=== PATIENT | male | born 1960 | race Caucasian/White ===

== ENCOUNTER 2021-04-16 18:00 | Outpatient (RCR) | payer BC, SELFPAY ==
--- NOTE | 2021-02-19 19:02 | HP.PTEVAL ---
Patient's Visit Information PAM GONZALEZ is a 60 year old M referred to Physical Therapy by WENCESLAO Grossman with a diagnosis of R shoulder pain. Date of Evaluation: 02/19/21 Physical Therapist: Charles Velez, PT, ATC - Visit Plan Frequency: 2-3x /Week Duration: 4 Weeks Plan: Issue and instruct pt on HEP of rotator cuff stretches, and scap stab ex's - Subjective Pt reports his R shoulder became really sore approximately 5-6 weeks ago. Pt reports his pain progressively worsened until he was barely able to move his R UE. Pt reports after taking a prednisone dose pack, his pain has really decreased and he is much better today. Pt reports occasional sleep difficulty if he sleeps on his R shoulder. 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 Pt denies tingling and numbness at this time. Pt is R hand dominant. Pt reports he is here today in order to get a HEP that he would be able to do I at home. Pt reports his pain is always worse in the morning. Pt reports this makes it hard for him to wash his hair. 0/10 pain at rest, 4/10 pain at worst. - Pain R shoulder pain Pain Intensity (Out of 10): 0 Pain Intensity Range: 4 - Objective Neuro: B UE sensation is WNL to light touch. B bicepital reflex= 2/3. Palpation: R shoulder is sore throughout the distribution of the LHB tension. No obvious deformity at thisd time. ROM: B shoulders are WFL at this time. MMT: R shoulder ER 3+/5 and painful. All other B UE MMT 5/5 throughout. Special tests:Pos HK, empty can sign - Balance/Special Test Scores Quick DASH Score: 22.7250 - Goals Goal 1:: I with HEP Goal Time Frame: 2 Weeks - Rehabilitation Potential Physical Therapy Diagnosis: R shoulder pain, weakness, and limited ROM secondary to impingement syndrome of the R shoulder Rehabilitation Potential: Good - Anticipated Interventions Patient/Client Instruction: Educate patient on: Condition, Plan of Care For the Purpose of:: To improve self management Therapeutic Exercise to Include: Strength training, Endurance training, Active ROM, Scapular Strength/Stabilization For the Purpose of:: To decrease pain, To increase ROM, To improve muscle performance and motor function Cryotherapy (ice pack, ice massage): Yes For the Purpose of:: To decrease pain Thank you for the opportunity to evaluate your patient. For Medicare and Medicare HMO plans, please review the plan of care and approve it. It will need to be FAXED BACK to us at [phone] for Medicare purposes. For Medicare only, by signing this I certify the plan of care. Please let me know if there are questions or concerns regarding this plan of care. Physician Signature: Date:
--- NOTE | 2021-04-16 18:28 | HP.PTDCSUM ---
It has been my pleasure to treat PAM GONZALEZ referred by WENCESLAO Grossman, with the diagnosis of R shoulder pain for a total of 6 visit(s). Discharge Date: Please see the following information for a summary of their discharge status. Subjective: Pt reports minor pain this date R shoulder pain Pain Intensity (Out of 10): 1 Objective/Function: R shoulder pain 0-1/10. R shoulder ROM: flex= 145, abd= 135, ER= 55. R shoulder MMT: 5/5 throughout with exception ER= 4/5. Pt is I with HEP. Rx goals achieved Goal 1:: I with HEP Goal Progress: Goal Met Plan: Discharge If there are questions or concerns regarding this patient's physical therapy, please feel free to call me at [phone]. Thank you for the referral of this patient. Sincerely, Charles Velez, PT, ATC Balance/Gait/Functional tests - Balance/Special Test Scores Quick DASH Score: 6.8175
== END 2021-04-16 19:00 | disposition home or self-care (01) ==
LOC: PT 18:00
PROVIDERS: PCP Family Medicine; Referring Provider Physician Assistant Surgical; Visit Provider Physician Assistant Surgical
DX: M77.8 Other enthesopathies, not elsewhere classified (principal); S46.911A Strain of unspecified muscle, fascia and tendon at shoulder and upper arm level, right arm, initial encounter
CPT/HCPCS: 97110; 97161; 97164

== ENCOUNTER 2021-08-07 15:54 | Emergency (ER) | payer BC, SELFPAY ==
[2021-08-07 15:55] VITALS: BP 195/91; PULSE 88; RESP 18; TEMP 36.3; O2SAT 98; BMI 28.8
--- NOTE | 2021-08-07 16:09 | EX.ED.DYSGE1 ---
HPI <WENCESLAO Abbott - Last Filed: 08/07/21 17:11> History of Present Illness Chief Complaint: Complaint Narrative Narrative: 60-year-old male with PMH of BPH presents with decreased urine flow over the last 3 days. He has the urge to go but only a small amount dribbles out. He has had this intermittently in the past but it never required intervention. He saw Dr. Cobb who ruled out prostate cancer and he has been taking [id number] BPH medications. He has suprapubic pain but no flank pain. No fever, chill, nausea, or vomiting. PFSH <WENCESLAO Abbott - Last Filed: 08/07/21 17:11> [facility] Medical History (Updated 08/07/21 @ 17:09 by WENCESLAO Abbott) Shoulder pain Home Medications NK 01/30/21 [History Last Taken Unknown] Allergy/AdvReac Type Severity Reaction Status Date / Time No Known Allergies Allergy Verified 08/07/21 15:56 Surgical History History of vasectomy Social History Smoking Status: Never smoker ROS <WENCESLAO Abbott - Last Filed: 08/07/21 17:11> ROS ED ROS Narrative Constitutional: Negative for fever, chills, malaise. Eyes: Negative for visual change. ENT: Negative for sore throat, ear pain, rhinorrhea. CVS: Negative for palpitations, chest pain, syncope. Respiratory: Negative for shortness of breath, cough, orthopnea. GI: Positive for abdominal pain. Negative for nausea, vomiting, diarrhea, constipation, melena, hematochezia. : Positive for urgency. Negative for dysuria, hematuria. Neuro: Negative for headache, motor/sensory dysfunction. Skin: Negative for rash, abscess, or wound. Musc: Negative for joint pain, swelling, trauma. Heme: Negative for easy bruising, bleeding, lymphadenopathy. EXAM <WENCESLAO Abbott - Last Filed: 08/07/21 17:11> Physical Exam Narrative Exam Narrative: CONST: Patient sitting in no acute distress. EYES: Normal inspection. NECK: Normal inspection. RESP: No respiratory distress, CTAB. CVS: Regular rate and rhythm, no murmur, no gallop. ABD: Soft with suprapubic distention and tenderness, no guarding or rebound. Back: Normal inspection, no CVA tenderness. SKIN: Color normal, no rash, warm, dry, intact. EXTREMITIES: Normal appearance, no pedal edema. NEURO: Oriented x4. PSYCH: Normal affect. Const Vital Signs: 08/07/21 15:55 Temperature 97.4 F L Temperature Source Temporal Pulse Rate 88 Respiratory Rate 18 Blood Pressure 195/91 H Blood Pressure Mean 125 Pulse Ox 98 Oxygen Delivery Method Room Air <Dr. Carlos Perrin DO - Last Filed: 08/07/21 17:18> Physical Exam Const Vital Signs: 08/07/21 15:55 Temperature 97.4 F L Temperature Source Temporal Pulse Rate 88 Respiratory Rate 18 Blood Pressure 195/91 H Blood Pressure Mean 125 Pulse Ox 98 Oxygen Delivery Method Room Air MDM <Leah Albert PA - Last Filed: 08/07/21 17:11> [facility] Narrative Medical decision making narrative: Patient presents with suprapubic pain and urinary retention. He has known history of BPH. He appears well nontoxic. He was hypertensive, otherwise normal vital signs. On examination he is suprapubic distention and tenderness. No CVA tenderness. Bladder scan showed over 900 cc present so Humphreys was placed and he had around 1000 cc output. He is feeling significantly improved with now soft, nontender nondistended abdomen. UA is negative for infection. Patient is established with Dr. García and will call him on Tuesday for a follow-up for urinary retention. We discussed Humphreys catheter care and he was discharged in stable condition. 1. Urinary retention, indwelling Humphreys placed Lab Data Labs: Laboratory Results - last 24 hr 08/07/21 16:30 Urine Color Yellow Urine Clarity Clear Urine pH 6.0 Ur Specific [place] 1.020 Urine Protein Negative Urine Glucose (UA) Normal Urine Ketones Negative Urine Occult Blood 25 H Urine Nitrite Negative Urine Bilirubin Negative Urine Urobilinogen Normal Ur Leukocyte Esterase Negative Urine RBC 0-5 SEEN Urine WBC 0 SEEN Ur Squamous Epith Cells 0 SEEN Urine Bacteria 0 SEEN Urine Mucus 0 SEEN <Dr. Carlos Perrin DO - Last Filed: 08/07/21 17:18> [facility] Narrative Medical decision making narrative: I performed a history and physical examination of the patient and discussed management plan with the physician construction management assistant. I reviewed the physician construction management assistant's note and agree with the documented findings and plan of care. Patient notes a history of prostatic enlargement. He notes that he has continued to have a decrease in his stream and frequent urination. Now unable to urinate. Humphreys catheter was placed with over 1000 cc out. He will be discharged and follow-up with urology. Carlos Perrin DO, MS Lab Data Attestation: I reviewed the patient's lab results. Labs: Laboratory Results - last 24 hr 08/07/21 16:30 Urine Color Yellow Urine Clarity Clear Urine pH 6.0 Ur Specific [place] 1.020 Urine Protein Negative Urine Glucose (UA) Normal Urine Ketones Negative Urine Occult Blood 25 H Urine Nitrite Negative Urine Bilirubin Negative Urine Urobilinogen Normal Ur Leukocyte Esterase Negative Urine RBC 0-5 SEEN Urine WBC 0 SEEN Ur Squamous Epith Cells 0 SEEN Urine Bacteria 0 SEEN Urine Mucus 0 SEEN Discharge Plan Triage Chief Complaint: Complaint ED Provider: Leah Albert Dx/Rx/DC Orders Clinical Impression: Acute urinary retention Instructions: ED Urinary Retention, Male Prescriptions: No Action NK RF: 0 Primary Care Provider: Sebastián Otero Referrals: Sebastián Otero MD [Primary Care Provider] - Jake García MD [STAFF PHYSICIAN] - Activity Restrictions/Additional Instructions: You were seen for urinary retention. The Humphreys catheter stays in and drained your urine. Follow-up with urology for evaluation and removal. If you have any issues or it not draining come back to the ER. Disposition Disposition: Home, Self Care
[2021-08-07 16:38] LABS: Bacteria 0 SEEN /hpf (None Seen); Mucous, Urine 0 SEEN /hpf (<or=2+); Squamous Epithelial Cells - UA 0 SEEN /hpf (0-5); White Blood Cells 0 SEEN /hpf (0-5)
[2021-08-07 16:45] LABS: Color, Urine Yellow (Yellow); Glucose, Dipstick Normal (Normal); Ketone-Dipstick Negative (Negative); Leukocyte Esterase-Dipstick Negative /ul (Negative); Nitrite-Dipstick Negative (Negative); Occult Blood-Urine 25 /ul (Negative); Protein-Dipstick Negative (Negative); Urine Bilirubin Dipstick Negative (Negative); Urine Clarity Clear (Clear); Urine Urobilinogen Normal (Normal)
[2021-08-07] MEDS: Lidocaine Jelly 2% 20 ML Syringe (URO-JET) 1 APPLIC TOPICAL (16:50)
[2021-08-07 16:56] LABS: Red Blood Cells-Urine 0-5 SEEN /hpf (0-5)
== END 2021-08-07 17:45 | disposition home or self-care (01) ==
PROVIDERS: Emergency Provider Physician Assistant; PCP Family Medicine; Visit Provider Physician Assistant
DX: R33.9 Retention of urine, unspecified (principal); R10.2 Pelvic and perineal pain; R35.0 Frequency of micturition; N40.1 Benign prostatic hyperplasia with lower urinary tract symptoms
CPT/HCPCS: 81001; 87086; 99282

== ENCOUNTER 2021-08-19 13:30 | Emergency (ER) | payer BC, SELFPAY ==
[2021-08-19 13:30] VITALS: BP 151/90; PULSE 112; RESP 18; TEMP 38.6; O2SAT 97; BMI 28.8
--- NOTE | 2021-08-19 14:06 | EX.ED.DYSGE1 ---
HPI History of Present Illness Chief Complaint: Complaint Narrative Narrative: Patient presents due to concerns of unable to urinate. Patient was seen in the ER on August 07 and had a Humphreys placed secondary to urinary retention. He saw Dr. García approximately 10 days later. Humphreys catheter was removed and he was started on Flomax. He states the last several days he is noted decreased urine output and low-grade fever that seem to increase today. He states he was able to get a few small dribbles of urine today but does not feel he is emptying his bladder. Temperature on arrival here is 101.4. PFSH [facility] Medical History BPH (benign prostatic hyperplasia) Shoulder pain Home Medications sulfamethoxazole-trimethoprim [Bactrim DS] 1 tab PO BID #14 tab 08/19/21 [Rx Last Taken Unknown] tamsulosin 0.4 mg PO QHS 08/19/21 [History Last Taken Unknown] Allergy/AdvReac Type Severity Reaction Status Date / Time No Known Allergies Allergy Verified 08/19/21 13:32 Surgical History History of vasectomy Social History Smoking Status: Never smoker ROS ROS ED Constitutional Constitutional ED: Reports fever(s); Denies chills Eyes Eyes: Denies change in vision ENT ENT ED: Denies sore throat Cardiovascular Cardiovascular: Denies chest pain Respiratory/Chest Respiratory/Chest: Denies cough, dyspnea or sputum Gastrointestinal Gastrointestinal: Reports abdominal pain; Denies diarrhea, nausea or vomiting Genitourinary Genitourinary ED: Reports other Details: Urinary retention Musculoskeletal Musculoskeletal: Denies back pain Integumentary Denies rash Neurologic Neurologic: Denies headache(s) or weakness Allergic/Immunologic Allergic/Immunologic ED: Denies urticaria EXAM Physical Exam Const Vital Signs: 08/19/21 13:30 08/19/21 15:47 Temperature 101.4 F H 99.3 F H Temperature Source Temporal Oral Pulse Rate 112 H 94 Respiratory Rate 18 16 Blood Pressure 151/90 H 127/73 H Blood Pressure Mean 110 91 Pulse Ox 97 94 Oxygen Delivery Method Room Air Room Air Positive well nourished and well developed General Appearance ED: well developed HEENT Reports moist mucous membranes Eyes PERRL and EOMs intact bilaterally Neck supple Chest Wall inspection of chest normal and palpation of chest normal Resp normal respiratory effort and clear to auscultation bilaterally Cardio regular rate and regular rhythm GI Palpation: soft and tender suprapubic Neuro oriented x3 Sensorium / Orientation: alert Psych mental status grossly normal Skin no rashes or lesions noted MDM MDM MDM Narrative Medical decision making narrative: Patient given Tylenol for fever. Lab work, urinalysis, cultures obtained. IV fluids ordered. Bladder scan reportedly only showed 195 cc of urine, but with patient's constitution of symptoms Humphreys catheter is ordered. Lab Data Attestation: I reviewed the patient's lab results. Labs: Laboratory Results - last 24 hr 08/19/21 08/19/21 08/19/21 14:15 14:15 14:15 WBC 18.7 H RBC 5.04 Hgb 14.9 Hct 44.1 MCV 87.5 MCH 29.6 MCHC 33.8 RDW Std Deviation 42.0 RDW Coeff of [place] 13.0 Plt Count 241 MPV 9.1 Immature Gran % (Auto) 0.700 Neut % (Auto) 89.5 H Lymph % (Auto) 3.0 L [place] % (Auto) 6.6 Eos % (Auto) 0.0 Baso % (Auto) 0.2 Absolute Neuts (auto) 16.7 H Absolute Lymphs (auto) 0.57 L Nucleated RBC % 0 Differential Comment Platelet Estimate ADEQUATE RBC Morphology NORM C+C Sodium 136 Potassium 3.8 Chloride 104 Carbon Dioxide 25.0 Anion Gap 7 BUN 22 H Creatinine 1.01 Estim Creat Clear Calc 79.72 Est GFR (MDRD) Af Amer 97 Est GFR (MDRD) Non-Af 80 BUN/Creatinine Ratio 21.8 H Glucose 172 H Lactic Acid 1.7 Calcium 8.9 Urine Color Urine Clarity Urine pH Ur Specific [place] Urine Protein Urine Glucose (UA) Urine Ketones Urine Occult Blood Urine Nitrite Urine Bilirubin Urine Urobilinogen Ur Leukocyte Esterase Urine RBC Urine WBC Ur Squamous Epith Cells Urine Bacteria Urine Mucus 08/19/21 14:33 WBC RBC Hgb Hct MCV MCH MCHC RDW Std Deviation RDW Coeff of [place] Plt Count MPV Immature Gran % (Auto) Neut % (Auto) Lymph % (Auto) [place] % (Auto) Eos % (Auto) Baso % (Auto) Absolute Neuts (auto) Absolute Lymphs (auto) Nucleated RBC % Differential Comment Platelet Estimate RBC Morphology Sodium Potassium Chloride Carbon Dioxide Anion Gap BUN Creatinine Estim Creat Clear Calc Est GFR (MDRD) Af Amer Est GFR (MDRD) Non-Af BUN/Creatinine Ratio Glucose Lactic Acid Calcium Urine Color Yellow Urine Clarity Sl. Cloudy Urine pH 6.5 Ur Specific [place] 1.015 Urine Protein 30 H Urine Glucose (UA) 100 H Urine Ketones 15 H Urine Occult Blood 50 H Urine Nitrite Negative Urine Bilirubin Negative Urine Urobilinogen 1 H Ur Leukocyte Esterase 100 H Urine RBC 0-5 SEEN Urine WBC 10-25 SEEN Ur Squamous Epith Cells 0 SEEN Urine Bacteria 2+ Urine Mucus 0 SEEN Treatment and Re-Evaluation Narrative: After Humphreys catheter placed patient states pressure in his lower abdomen is significantly improved. When I went back to recheck him he already had 300 cc of urine out in the bag. White count significantly elevated at 18.7 with left shift. Chemistry studies reveal normal renal function. Glucose 172. Lactic acid is 1.7. Urinalysis shows 10-25 white cells with 2+ bacteria. Patient is given a dose of IV Rocephin. Repeat temperature at this time is 99.3. Patient is nontoxic-appearing. He will go home with a leg bag and Bactrim. He is to follow-up with Dr. García next week. Return instructions provided. Discharge Plan Triage Chief Complaint: Complaint ED Provider: Gabby Mendez Dx/Rx/DC Orders Clinical Impression: UTI (urinary tract infection), Urinary retention Instructions: ED Urinary Retention, Male, ED Urinary Tract Infections in Men Prescriptions: New sulfamethoxazole-trimethoprim [Bactrim DS] 800-160 mg tablet 1 tab PO BID Qty: 14 RF: 0 No Action tamsulosin 0.4 mg capsule 0.4 mg PO QHS RF: 0 Primary Care Provider: Sebastián Otero Referrals: Sebastián Otero MD [Primary Care Provider] - Jake García MD [STAFF PHYSICIAN] - 5-7 Days Disposition Disposition: Home, Self Care
[2021-08-19] MEDS: Acetaminophen 500 MG Tablet 1000 MG PO (14:17)
[2021-08-19] MEDS: Lidocaine Jelly 2% 20 ML Syringe (URO-JET) 1 APPLIC TOPICAL (14:17)
[2021-08-19] MEDS: 0.9% Normal Saline 1,000 ML 150 ML IV (14:17)
[2021-08-19 14:27] LABS: Absolute Lymphocyte Count 0.57 X10^3/uL (0.83-4.51); Absolute Neutrophil Count 16.7 X10^3/uL (2.0-7.7); Basophil# 0.04 X10^3/uL; Basophil% 0.2 % (0-1); Hematocrit 44.1 % (40-54); Hemoglobin 14.9 g/dL (13.0-16.5); Lymphocyte # 0.57 X10^3/ul (0.83-4.51); Mean Corp Hgb Conc 33.8 g/dL (32-36); Mean Corpuscular Hgb 29.6 pg (27.0-32.0); Mean Corpuscular Volume 87.5 fL (80-94); Mean Platelet Vol. 9.1 fl (6.2-12.0); Monocyte# 1.24 X10^3/uL; Monocyte% 6.6 % (0-10); NRBC Flagged by Analyzer 0 % (0-5); Neutrophil # 16.71 X10^3/uL (2.7-7.7); Neutrophil % 89.5 % (47-70); POSITIVE DIFFERENTIAL YES; Platelet Count 241 K/mm3 (150-450); Red Blood Count 5.04 M/mm3 (4.6-6.2); White Blood Count 18.7 K/mm3 (4.4-11.0)
[2021-08-19 14:38] LABS: Mucous, Urine 0 SEEN /hpf (<or=2+); Squamous Epithelial Cells - UA 0 SEEN /hpf (0-5)
[2021-08-19 14:44] LABS: Anion Gap 7 (5-15); BUN 22 mg/dL (7-18); BUN/Creat Ratio 21.8 RATIO (10-20); Calcium,Total 8.9 mg/dL (8.5-10.1); Chloride 104 mmol/L (98-107); Creatinine, Serum 1.01 mg/dL (0.70-1.30); EST Glomerular Filtration Rate 80 mL/min (>60); Est Glom Filt Rate - Afr Amer 97 mL/min (>60); Estimated Creatinine Clearance 79.72 ml/min; Glucose 172 mg/dL (74-106); Potassium 3.8 mmol/L (3.5-5.1); Sodium Level 136 mmol/L (136-145)
[2021-08-19 14:45] LABS: Differential Indicated SCAN CRITERIA MET
[2021-08-19 14:47] LABS: Color, Urine Yellow (Yellow); Glucose, Dipstick 100 mg/dl (Normal); Ketone-Dipstick 15 mg/dl (Negative); Leukocyte Esterase-Dipstick 100 /ul (Negative); Nitrite-Dipstick Negative (Negative); Occult Blood-Urine 50 /ul (Negative); Protein-Dipstick 30 mg/dl (Negative); Specific Gravity, Urine 1.015 (1.002-1.030); Urine Bilirubin Dipstick Negative (Negative); Urine Clarity Sl. Cloudy (Clear); Urine Urobilinogen 1 mg/dl (Normal); Urine pH 6.5 (5.0 - 8.0)
[2021-08-19 14:53] LABS: Bacteria 2+ /hpf (None Seen); Red Blood Cells-Urine 0-5 SEEN /hpf (0-5); White Blood Cells 10-25 SEEN /hpf (0-5)
[2021-08-19 14:56] LABS: Lactic Acid 1.7 mmol/L (0.4-1.9)
[2021-08-19] MEDS: Ceftriaxone 1 GM/50 ML BAG IV (15:13)
[2021-08-19 15:33] LABS: Platelet Estimate ADEQUATE (ADEQ); Red Cell Morphology NORM C+C NORMAL (NORM C&C)
[2021-08-19 15:47] VITALS: BP 127/73; PULSE 94; RESP 16; TEMP 37.4; O2SAT 94
--- NOTE | 2021-08-20 04:35 | ED.RN ---
lab called with positive blood culture results. gram negative with rods. Spoke with Dr. Astudillo. Patient sent home with bactrim atx which will cover it. Patient to follow up with pcp. No need for further treatment at this time
--- NOTE | 2021-08-20 05:33 | ED.RN ---
lab called with second set of positive blood cultures. gram negative in rods. Spoke again with dr. Astudillo continue batrim no need for further medicine treatment
== END 2021-08-19 16:11 | disposition home or self-care (01) ==
PROVIDERS: Emergency Provider Emergency Medicine; PCP Family Medicine; Visit Provider Emergency Medicine
DX: N39.0 Urinary tract infection, site not specified (principal); R33.9 Retention of urine, unspecified; N40.1 Benign prostatic hyperplasia with lower urinary tract symptoms
CPT/HCPCS: 51702; 80048; 81001; 83605; 85025; 87040; 87077; 87086; 87088; 87186; 99285; J7030; A4216

== ENCOUNTER 2021-08-26 14:53 | Observation (INO) | payer BC, SELFPAY ==
[2021-08-26] VITALS (9 sets, daily range): BP systolic 111–136; BP diastolic 71–89; PULSE 66–82; RESP 14–16; TEMP 36.4–36.9; O2SAT 93–100; BMI 27.8
--- NOTE | 2021-08-26 13:20 | EKG12_ITS ---
Test Reason : PRE-OP Blood Pressure : / mmHG Vent. Rate : 062 BPM Atrial Rate : 062 BPM P-R Int : 188 ms QRS Dur : 092 ms QT Int : 412 ms P-R-T Axes : 050 -40 037 degrees QTc Int : 418 ms Normal sinus rhythm Left axis deviation Septal infarct , age undetermined Abnormal ECG No previous ECGs available Confirmed by MATTHEW JIMÉNEZ, LEIDY ([id number]), index editor HUE ORTIZ ([id number]) on 08/31/2021 10:16:40 A M Referred By: Sebastián Otero Confirmed By:SAMMY CASTRO MD
[2021-08-26] MEDS: Cefazolin 2 GM in 0.9% Normal Saline 100 ML IV (14:44)
--- NOTE | 2021-08-26 14:56 | PCM.HP.STD ---
HPI - General HPI Narrative PAM GONZALEZ, is a 60 M who presents for a TURP for retention of urine PFSH Medical History (Updated 08/25/21 @ 09:12 by Judie Franz) Back pain BPH (benign prostatic hyperplasia) Heart murmur Leg cramps Non-smoker Prostate disease Shoulder pain Wears glasses Home Medications sulfamethoxazole-trimethoprim [Bactrim DS] 1 tab PO BID #14 tab 08/19/21 [Rx Last Taken Unknown] tamsulosin 0.4 mg PO QHS 08/19/21 [History Last Taken Unknown] acetaminophen [Tylenol] 650 mg PO Q4H PRN 08/25/21 [History Last Taken Unknown] ciprofloxacin HCl [Cipro] 500 mg PO BID #10 tab 08/26/21 [Rx Last Taken Unknown] Allergy/AdvReac Type Severity Reaction Status Date / Time No Known Allergies Allergy Verified 08/25/21 09:02 Surgical History History of vasectomy Social History Smoking Status: Never smoker Vital Signs Vital Signs Vital Signs: 08/26/21 13:33 Temperature 98.4 F Temperature Source Temporal Pulse Rate 72 Respiratory Rate 16 Respiratory Pattern Normal Blood Pressure 136/84 H Blood Pressure Mean 101 Blood Pressure Source Monitor Blood Pressure Position Semi-Fowlers Blood Pressure Location Right Arm Pulse Ox 96 Oxygen Delivery Method Room Air Weight Weight: 85.7 kg Body Mass Index (BMI) 27.8
--- NOTE | 2021-08-26 14:56 | PCM.DC ---
Discharge Instructions Diet Discharge Diet: No restrictions Activity Discharge Activity: Return to Normal Activity and May Not Drive (while taking narcotic pain medications.) Dressing / Incision Call your doctor if you observe: Fever of 101 or Higher Follow Up Care Please Follow Up With: Jake García MD When: Call [phone] for an appointment Test Results: Test results from this visit will be discussed in further detail at your follow-up appointment, if applicable. Discharge Plan Admission Primary Reason for Your Visit: LAZARA Attending Provider: Jake García Primary Care Provider: Sebastián Otero Instructions Patient Instructions: LAZARA Home Recovery Discharge Orders/Prescriptions Prescriptions: New ciprofloxacin HCl [Cipro] 500 mg tablet 500 mg PO BID Qty: 10 RF: 0 Continued tamsulosin 0.4 mg capsule 0.4 mg PO QHS RF: 0 sulfamethoxazole-trimethoprim [Bactrim DS] 800-160 mg tablet 1 tab PO BID Qty: 14 RF: 0 acetaminophen [Tylenol] 325 mg Tablet 650 mg PO Q4H PRN (Reason: Pain) RF: 0 Referrals / Follow Up: Sebastián Otero MD [Primary Care Provider] - Jake García MD [STAFF PHYSICIAN] - Disposition Disposition (needs filled in before D/C Order can be placed): Home, Self Care
--- NOTE | 2021-08-26 15:10 | PROS_PTH ---
PATIENT: PAM GONZALEZ LOC: [facility] U#:[id number] AGE/SX: 60/M ROOM: [facility] RE08/26/[address]: Dr. Jake García MD : 1960 BED: 1 DIS: 08/27/2021 SPEC #: [id number] RECD: 08/27/21 07:38 STATUS: ETHAN CEDENO #: [id number] MONSERRAT: 08/26/21 15:[address]: Jake García DEPT: SURGICAL PATHOLOGY RECD BY: Micaela Poole ENTERED: 08/27/21 08:08 SP TYPE: TURP OTHR DR: Dr. Hai Otero MD Tissues: Prostate, NOS Procedures: Surgery Specimen Level IV HEADER OPERATION: Cysto, TUR prostate, [employer] PRE-OP DIAGNOSIS: BPH with upper urinary tract symptoms TISSUE SUBMITTED: Prostate tissue MICROSCOPIC DIAGNOSIS Prostate, transurethral resection: Benign nodular hyperplasia, glandular and stromal types. Chronic inflammation. AM:reena 08/28/2021 MICROSCOPIC DESCRIPTION Slides are reviewed. GROSS DESCRIPTION Received is one container labeled with the patient's name and designated prostate tissue. The specimen consists of multiple irregular fragments of pink-kemp, rubbery, soft tissue that in aggregate weigh 16.8 gm and measure in aggregate 6 x 6 x 1 cm. Software Validation Technician portions are submitted in ten cassettes. / AM:reena 08/27/2021 TC:3 CPT: 74895
--- NOTE | 2021-08-26 16:13 | OP.PCM_ITS ---
Report of Operation Date of Procedure: 08/26/21 Pre-Operative Diagnosis: bph with obstruction Post-Operative Diagnosis: same Surgery/Procedure Performed:: transurethral resection of prostate Description of Surgical Findings:: In the preoperative setting I discussed with the patient how the surgery would be done with expect afterwards. We discussed how a prostate resection is done and we discussed the risk of the surgery including, bleeding, infection, retrograde ejaculation, changes with ejaculation or intercourse,. We discussed the possibility that the resection of the prostate may not alleviate his urinary symptoms. We discussed the small risk of developing scar tissue along the urethral channel and strictures. We also discussed the chance of the prostate could grow back and he may need further surgery or treatment in the future for prostate problems. Patient was taken back to the operating room, timeout procedure was performed, he was identified and marked and placed on the operating room table. He underwent general anesthesia. He was placed in dorsolithotomy position. Penis and testicles were prepped and draped in usual sterile fashion. Went into the bladder using the visual obturator with a resectoscope. Once inside the bladder identified the right and left ureteral orifice. I then identified the prostate and the anatomy of the prostate. I marked out the area of the sphincter and the verumontanum was identified. I then proceeded with the prostate resection first resected the median lobe. And then resected the right lobe of the prostate. Then to resect the left lobe of the prostate. I then resected the apical tissue of the prostate. This was a complete resection of all obstructive tissue to improve voiding and relieve obstruction. I then made sure that there was no injury to the sphincter or the verumontanum was still intact. At the end of the resection all the chips were Ellik out of the bladder. I then identified the left and right ureteral orifice and these were confirmed to be in good position and effluxing and not injured. The resectoscope was removed, a 22 [place] catheter was placed into the bladder on continuous irrigation. And the urine was fairly light pink color and draining normally. He was taken back to the PACU in good condition. CPT 66013 Surgeon: fatimah Type of Anesthesia: General Drains: [address] Admit VTE Documentation VTE Present on Admission: No VTE Mechan Device Prophylaxis: SCD's VTE Pharm Prophylaxis ordered?: No
[2021-08-26] MEDS: Acetaminophen 500 MG Tablet PO (22:22)
[2021-08-26] MEDS: Tamsulosin HCl 0.4 MG Capsule PO (22:23)
[2021-08-26] MEDS: Ciprofloxacin 500 MG Tablet PO (22:26)
[2021-08-27 02:15] VITALS: BP 101/59; PULSE 65; RESP 16; TEMP 36.8; O2SAT 94
[2021-08-27] MEDS: Acetaminophen 500 MG Tablet PO (02:39)
--- NOTE | 2021-08-27 07:54 | PCM.PN.GU ---
Subjective Subjective doing well d/c silvia jose home Objective Data Objective Data Vital Signs: Vital Signs Temp Pulse Resp BP Pulse Ox 98.3 F 65 16 101/59 L 94 08/27/21 02:15 08/27/21 02:15 08/27/21 02:15 08/27/21 02:15 08/27/21 02:15 Oxygen Delivery Method Room Air Weight: 85.7 kg Body Mass Index (BMI) 27.8 Intake & Output: Intake and Output for Last 24 Hours 08/25/21 08/26/21 08/27/21 23:59 23:59 23:59 Intake Total 110 / 110 Output Total 800 / 800 3150 / 3150 Balance -690 / -690 -3150 / -3150
[2021-08-27 08:30] VITALS: BP 104/69; PULSE 70; RESP 16; TEMP 36.4; O2SAT 97
[2021-08-27] MEDS: Ciprofloxacin 500 MG Tablet PO (08:48)
--- NOTE | 2021-08-27 09:00 | NURSING ---
Removed vega catheter per Dr. rosado.
--- NOTE | 2021-08-27 11:17 | CASEMGMT ---
MATEUS CM notified that pt wanted to know if he could pay his bill today to receive a discount. TC to olu's office, spoke with Leda, she states pt will get a bill in the mail and a 10% discount will be taken off for prompt payment. She states pt should not come down today as she would not know what charges there were. Pt updated with this information.
== END 2021-08-27 11:52 | disposition home or self-care (01) ==
LOC: SDC 16:14 → MS3 16:15
PROVIDERS: Admitting Provider Urology; PCP Family Medicine; Referring Provider Family Medicine; Visit Provider Urology
PROC: (CPT 52601; principal; 2021-08-26 15:00)
DX: N40.1 Benign prostatic hyperplasia with lower urinary tract symptoms (principal); R33.9 Retention of urine, unspecified; R01.1 Cardiac murmur, unspecified
CPT/HCPCS: 52601; 00914; 88305; 93005; 99218; J7120; G0378; J2405

== ENCOUNTER → 2022-01-15 | Outpatient (CLI) | payer BC, SELFPAY ==
[2022-01-15 16:00] LABS: Anion Gap 7 (5-15); BUN 19 mg/dL (7-18); BUN/Creat Ratio 20.9 RATIO (10-20); Calcium,Total 8.8 mg/dL (8.5-10.1); Chloride 108 mmol/L (98-107); Cholesterol 176 mg/dL (200); Creatinine, Serum 0.91 mg/dL (0.70-1.30); EST Glomerular Filtration Rate 91 mL/min (>60); Est Glom Filt Rate - Afr Amer 110 mL/min (>60); Glucose 85 mg/dL (74-106); High Density Lipoprotein 42 mg/dL; Potassium 3.9 mmol/L (3.5-5.1); Sodium Level 141 mmol/L (136-145); Triglycerides 45 mg/dL; Very Low Density Lipoprotein 9 mg/dL (5-40)
== END | disposition home or self-care (01) ==
LOC: MFPLAB 14:14
PROVIDERS: PCP Family Medicine; Referring Provider Family Medicine; Visit Provider Family Medicine
DX: Z13.220 Encounter for screening for lipoid disorders (principal); R73.09 Other abnormal glucose
CPT/HCPCS: 36415; 80048; 80061

== ENCOUNTER → 2022-02-01 | Outpatient (CLI) | payer BC, SELFPAY | END | disposition home or self-care (01) | LOC: LAB 16:34 | PROVIDERS: PCP Family Medicine; Visit Provider Urology | DX: Z12.5 Encounter for screening for malignant neoplasm of prostate (principal) | CPT/HCPCS: 36415; 84153; G0103 ==

== ENCOUNTER → 2022-03-22 | Outpatient (CLI) | payer BC, SELFPAY ==
--- NOTE | 2022-03-22 15:30 | PROSBIL_PTH ---
PATIENT: PAM GONZALEZ LOC: [facility] U#:[id number] AGE/SX: 61/M ROOM: RE03/22/[address]: Dr. Jake García MD : 1960 BED: DIS: 03/22/2022 SPEC #: [id number] RECD: 03/22/22 17:23 STATUS: ETHAN REQ #: [id number] MONSERRAT: 03/22/22 15:[address]: aJke García DEPT: SURGICAL PATHOLOGY RECD BY: Micaela Poole ENTERED: 03/23/22 07:27 SP TYPE: PROST BX DEANNE DR: Dr. Hai Otero MD Tissues: A - PROSTATE RIGHT B - PROSTATE RIGHT C - PROSTATE RIGHT D - PROSTATE LEFT E - PROSTATE LEFT F - PROSTATE LEFT Procedures: PROSTATE BX HEADER OPERATION: Prostate biopsy PRE-OP DIAGNOSIS: Elevated PSA TISSUE SUBMITTED: A - Right apex, B - Right mid, C - Right base, D - Left apex, E - Left mid, F - Left base MICROSCOPIC DIAGNOSIS A. Right prostate, apex, core biopsy: Prostatic tissue, negative for malignancy. Chronic inflammation. B. Right prostate, mid, core biopsy: Prostatic tissue, negative for malignancy. Moderate chronic inflammation. C. Right prostate, base, core biopsy: Prostatic tissue, negative for malignancy. Moderate chronic inflammation. D. Left prostate, apex, core biopsy: Prostatic tissue, negative for malignancy. Chronic inflammation. E. Left prostate, mid, core biopsy: Prostatic tissue, negative for malignancy. Chronic inflammation. F. Left prostate, base, core biopsy: Prostatic tissue, negative for malignancy. Moderate chronic inflammation. SJ:reena 03/24/2022 MICROSCOPIC DESCRIPTION Slides are reviewed. GROSS DESCRIPTION A - Received is one container designated prostate, right apex. The specimen consists of two elongated fragments of light ekmp-white soft tissue measuring 1.2 and 1.7 cm in length and 0.1 cm in diameter. The specimen is totally submitted in one cassette. B - Received is one container designated prostate, right mid. The specimen consists of two elongated fragments of light kemp-white soft tissue measuring 1.2 and 1.7 cm in length and 0.1 cm in diameter. The specimen is totally submitted in one cassette. C - Received is one container designated prostate, right base. The specimen consists of three elongated fragments of light kemp-white soft tissue measuring 0.7 to 1.2 cm in length and 0.1 cm in diameter. The specimen is totally submitted in one cassette. D - Received is one container designated prostate, left apex. The specimen consists of three elongated fragments of light kemp-white soft tissue measuring 0.5 to 1 cm in length and 0.1 cm in diameter. The specimen is totally submitted in one cassette. E - Received is one container designated prostate, left mid. The specimen consists of two elongated fragments of light kemp-white soft tissue measuring 0.8 and 1.5 cm in length and 0.1 cm in diameter. The specimen is totally submitted in one cassette. F - Received is one container designated prostate, left base. The specimen consists of two elongated fragments of light kemp-white soft tissue measuring 1.5 and 2.3 cm in length and 0.1 cm in diameter. The specimen is totally submitted in one cassette. / SJ:rg 03/23/2022 TC:3 CPT: 10294 x6
== END | disposition home or self-care (01) ==
PROVIDERS: PCP Family Medicine; Visit Provider Urology
DX: R97.20 Elevated prostate specific antigen [PSA] (principal)
CPT/HCPCS: 88305; G0416

== ENCOUNTER → 2022-08-13 | Outpatient (CLI) | payer BC, SELFPAY | END | disposition home or self-care (01) | LOC: LAB 15:22 | PROVIDERS: PCP Family Medicine; Referring Provider Registered Nurse; Visit Provider Registered Nurse | DX: R97.20 Elevated prostate specific antigen [PSA] (principal) | CPT/HCPCS: 36415; 84153 ==

== ENCOUNTER → 2023-09-13 | Outpatient (CLI) | payer BC, SELFPAY ==
[2023-09-15 15:09] LABS: PSA, Free 0.52 ng/mL; PSA, Free % 15.8 % (.)
== END | disposition home or self-care (01) ==
LOC: LAB 16:34
PROVIDERS: PCP Family Medicine; Referring Provider Urology; Visit Provider Urology
DX: R97.20 Elevated prostate specific antigen [PSA] (principal)
CPT/HCPCS: 36415; 84153; 84154

== ENCOUNTER → 2024-09-25 | Outpatient (CLI) | payer BC, SELFPAY ==
[2024-09-25 17:37] LABS: PSA,Total- Diagnostic 5.53 ng/mL (0.00-4.00)
== END | disposition home or self-care (01) ==
PROVIDERS: PCP Family Medicine; Referring Provider Nurse Practitioner; Visit Provider Nurse Practitioner
DX: R97.20 Elevated prostate specific antigen [PSA] (principal)
CPT/HCPCS: 36415; 84153